=== PATIENT | female | born 1990 | race Caucasian/White ===

== ENCOUNTER 2017-06-18 14:52 | Emergency (ER) | payer OTHER ==
[~2017-06-18] VITALS: Ht 162.6 cm; Wt 122.7 kg
[2017-06-18 14:58] VITALS: BP 112/66; PULSE 62; RESP 16; O2SAT 98
--- NOTE | 2017-06-18 16:08 | ED.REPORT ---
HPI-Psychiatric Illness Date of Service Jun 18, 2017 ED Provider: Manav Thayer MD Patient is a 27 year old female with a history of self harm who presents to the ED due to suicidal ideations. Associated symptoms include anxiety and headache that she attributes to stress. She denies auditory hallucinations. The patient reports that she had been off of her Citalopram for a few weeks due to a lapse in her insurance but her last dose was this morning. She states that she is here because she was worried about getting out of bed because she thought she might cut herself again and she would like help. Nursing Notes Stated Complaint: MENTAL HEALTH Chief Complaint: Psychiatric Complaint Nursing Notes Reviewed: Yes Allergies: Coded Allergies: Penicillins (Verified Allergy, Unknown, Hives, 06/18/17) Uncoded Allergies: MENOCYCLINE (Allergy, Unknown, Hives, 06/18/17) Scheduled PRN Hydroxyzine Pamoate (HydrOXYzine Pamoate) 25 Mg Capsule 25-50 MG PO HS PRN PRN For Insomnia General Time Seen by MD: 16:08 Chief Complaint Suicidal ideation Hx Obtained From: Patient Arrived By: Walk-in Onset Occurred: 5 - 8 hours ago Symptom Duration: Intermittent Caused by: Cut self Similar Sx Previous: Yes Risk-Psychiatric Illness Suicide Risk Stratification Suicide Risk Factors - Adult: No: Alcohol use, Substance abuse RF Statements: Risk factors reviewed Past Medical History Past Medical History pseudo tumor suicidal ideation Smoking History Unknown if Ever Smoker Social History previous self cutting Alcohol Use: Denies alcohol use Drug Use: Denies drug use Ambulatory Status Independent Review of Systems Respiratory: Denies: Non-productive cough, Shortness of breath Skin: Denies Itching, Denies Rash Neurologic: Reports: Headache Psychiatric: Reports: Anxiety, Stress, Suicidal ideation, Denies: Hallucinations, visual Complete sys rev & neg: except as marked. Physical Exam Initial Vital Signs Vital Signs (First) Date Time Temp Pulse Resp B/P Pulse Ox O2 Delivery O2 Flow Rate FiO2 06/18/17 14:58 36.9 62 16 112/66 98 Room Air Initial VS: Reviewed General/Constitutional: Awake, Alert cooperative Neurologic: Oriented X3, Speech NL, No motor deficits, No sensory deficits Psychiatric: No hallucinations, Judgment/insight NL suicidal without plan, states she might cut herself but does not really report suicidal intent Head / Eyes: Atraumatic, Normocephalic, PERRL, EOMI Respiratory / Chest: Atraumatic, Breath sounds NL, Breath sounds = bilat, No respiratory distress Cardiovascular: Heart rate NL, Regular rhythm, Heart sounds NL Skin: Atraumatic, Color NL, No rash, Warm, Dry Upper Extremity / MS: Atraumatic, Full range of motion Lower Extremity / Pelvis / MS: Atraumatic, Full range of motion Interpretation & Diagnostics Lab Results Interpretation Test 06/18/17 17:57 Hold Urine Received (Received) Lab Results Interpretation: urine tox: positive for THC urine preg: negative breathlyzer: 0 Re-Eval/Medical Decision Med Decision/Clinical Course Anxiety and ideation about self-harm without a specific plan. Self-harm seem mostly about cutting. Has not done anything to harm herself. director of student financial services evaluation completed, patient also complained of insomnia, we will try some hydroxyzine for sleep. Re-Evaluation/Progress #1: Time of Eval: 21:29 Re-Evaluation/Progress Note: direct care worker discussed availabe options for the patient and recommends the patient be discharged with outpatient follow up. Re-Evaluation/Progress #2: Time of Eval: 21:42 Re-Evaluation/Progress Note: Discussed plan for discharge. Patient understands and agrees to plan. All questions were addressed. Counseled Regarding: Diagnosis, Lab results, Need for follow-up, When/why to return to ED Discharge & Departure Impression: Primary Impression: Anxiety )( Condition at Discharge: No danger to self Disposition: Home Discharge Condition All VS Reviewed: Yes Condition: Stable Additional Instructions: follow up as advised by social and political studies professor. continue previous home medications. Hydroxyzine 25-50mg at bedtime as needed for sleep. [employer] Attestation Portions of this note were transcribed by Azucena Pradhan. I, Dr. Thayer personally performed the history, physical exam and medical decision-making; I reviewed and confirmed the accuracy of the information in the transcribed note. Signed by: Taj Mann, 06/18/17 Manav Thayer MD Jun 18, 2017 16:08 Giana Pradhan Jun 18, 2017 16:18
[2017-06-18] MEDS ORDERED: HYDR-3797 PO (21:45)
[2017-06-18 21:59] VITALS: BP 128/91; PULSE 70; RESP 18; O2SAT 97
== END 2017-06-18 22:00 | disposition home or self-care (01) ==
LOC: SED 14:52
DX: F41.9 Anxiety disorder, unspecified (principal); Z88.0 Allergy status to penicillin; Z88.1 Allergy status to other antibiotic agents